=== PATIENT | female | born 1975 | race Caucasian/White ===

== ENCOUNTER 2018-08-14 17:12 | Emergency (ER) | payer OTHER ==
[~2018-08-14] VITALS: Ht 149.9 cm; Wt 63.0 kg
[2018-08-14 17:53] VITALS: BP 141/90
--- NOTE | 2018-08-14 18:13 | NUR ---
WAIT IN LOBBY
--- NOTE | 2018-08-14 19:07 | NUR ---
PT AMBULATED TO BED 06.
--- NOTE | 2018-08-14 19:15 | NUR ---
42/F CAME IN ED, C/O 5/10 BURNING DYSURIA AND LOWER BACK PAIN, X1 WEEK. PT DENIES FEVER, N/V/D. DENIES MED HX, RX
[2018-08-14 20:10] VITALS: BP 141/90
--- NOTE | 2018-08-14 20:11 | NUR ---
Patient discharged with v/s stable. Written and verbal after care instructions given and explained. Patient alert, oriented and verbalized understanding of instructions. Ambulatory with steady gait. All questions addressed prior to discharge. ID band removed. Patient advised to follow up with PMD. Rx of PYRIDIUM, KELFEX, ZOVIRAX given. Patient educated on indication of medication including possible reaction and side effects. Opportunity to ask questions provided and answered.
[2018-08-14 20:17] LABS: APPEARANCE,URINE CLEAR (CLEAR); BILIRUBIN,URINE NEGATIVE (NEGATIVE); BLOOD, URINE LARGE (NEGATIVE); COLOR,URINE YELLOW (YELLOW); LEUKOCYTE ESTERASE ,URINE TRACE (NEGATIVE); NITRITE, URINE NEGATIVE (NEGATIVE); PH,URINE 6.5 (5.0-9.0); UGLUCOSE NEGATIVE (NEGATIVE)
[2018-08-14 20:43] LABS: RBC,URINE 3-10 (FEW) /HPF (0-5); WBC,URINE 0-5 (RARE) /HPF (0-5)
== END 2018-08-14 20:10 | disposition home or self-care (01) ==
LOC: MED 17:12
DX: N39.0 Urinary tract infection, site not specified (principal)
CPT/HCPCS: 81001; 81025; 87086; 99283